=== PATIENT | male | born 1935 | race Caucasian/White ===

== ENCOUNTER 2017-01-19 05:57 | Day surgery (SDC) | payer MEDICARE, OTHER ==
[~2017-01-19] VITALS: Ht 172.7 cm; Wt 94.1 kg
--- NOTE | ~2017-01-19 | EEP ---
ICD Generator Change/Upgrade Report Demographics Patient Name PUMA PINK Gender Male Patient Number [id number] Race Visit Number [id number] Ethnicity Corporate ID Room Number Accession Number [id number] Height 172.72 cm Date of 1935 Weight 93.89 kg Age 81 year(s) BSA 2.07 m Referring Physician Kiah Bañuelos MD BMI 31.47 kg/m Implanting Physician King Chava Coyle MD Date of Study 01/19/2017 Assisting Physician Performing Physician The procedure was explained in detail to the patient. Risks, complications and alternative treatments were reviewed. Written consent was obtained. Medications reviewed with patient prior to procedure. Conclusions Implantable Device Summary Summary Successful Single Chamber ICD exchange. Recommendations A wound check should be performed in 7 days. Complications No complications. Procedure Procedure Type ICD:Generator Exchange (No new leads), Exchange of ICD Gen w/1 lead Indications Generator DESMOND. Procedure Description The patient was brought to the cardiac cath laboratory in a fasting state. The patient was brought to the electrophysiology laboratory in a fasting state. A baseline ECG was recorded. Surface ECG leads, intracardiac electrograms, blood pressure measurements, and pulse oximety signals were monitored. A grounding pad was placed on the left thigh. A defibrillator was configured to deliver shocks via self-adhesive lateral defibrillator pads. Conscious sedation was administered. The left upper chest area was prepped with ChloraPrep. After a three minute dry time the patient was draped in a sterile fashion. 1 % Lidocaine with bupivacaine was used in the infraclavicular area and the incision was made over the old scar. Blunt dissection was performed down to the area of the capsule surrounding the ICD. The capsule was incised sharply and dissected free. The device was then removed. The leads were unscrewed. The leads were then tested. The leads were then connected to the new ICD generator. The pocket was flushed with antibiotic solution and hemostasis was obtained. The incision was then closed. It was closed using 2-0 Vicryl for the deep and intermediate layer and 4-0 Vicryl for the subcuticular layer. A sterile dressing was applied. The patient tolerated the procedure well and was returned to short stay surgery in stable condition. Devices and Leads Devices + + +--------+ +------+ + + !Identification!Action !Location!Device !Serial!Implant !Comments ! ! ! ! !name !# !date ! ! + + +--------+ +------+ + + !New implant !Implanted !Left !ICD !535776!01/19/2017! ! ! ! !Pectoral!DYNAGEN EL! ! ! ! ! ! ! !VR D151 ! ! ! ! ! ! ! !(623045) ! ! ! ! + + +--------+ +------+ + + Device Programming Bradycardia Zone +-------+--------+--------+--------+ + +------+--------+ !Pacing !Mode !Lower !Upper !Paced AV !Sensed AV !PVARP !VRP (ms)! !Mode !Switch !Rate !Rate !Interval !Interval !(ms) ! ! ! ! !(ppm) !(ppm) !(ms) !(ms) ! ! ! +-------+--------+--------+--------+ + +------+--------+ !VVI ! !50 !120 ! ! ! !250 ! +-------+--------+--------+--------+ + +------+--------+ Medical History Allergies - No known allergies:. Admission Data Admission Date: 01/19/2017 Admission Time: 05:57 Insurance Payors:Medicare. Hospital Status:Outpatient. Procedure Data Procedure Date:01/19/2017Start:08:30End:09:08 Estimated blood loss:10 ml. Procedure Medications Order and Administration + + +---------+--------+ !Time !Medication !Dosage !Route ! + + +---------+--------+ !01/19/2017 08:11 !Ancef !2 g !I.V. ! + + +---------+--------+ !01/19/2017 08:11 !Sodium Chloride !10 ml !I.V. ! + + +---------+--------+ !01/19/2017 08:21 !Versed !2 mg !I.V. ! + + +---------+--------+ !01/19/2017 08:21 !Fentanyl !50 mcg !I.V. ! + + +---------+--------+ !01/19/2017 08:22 !Sodium Chloride !30 ml !I.V. ! + + +---------+--------+ !01/19/2017 08:32 !Oxygen !2 l/min !NC ! + + +---------+--------+ !01/19/2017 08:37 !Fentanyl !50 mcg !I.V. ! + + +---------+--------+ !01/19/2017 08:38 !Versed !1 mg !I.V. ! + + +---------+--------+ Approach - Incision site: Left existing scar.The incision was closed using 3-0 Vicryl for the deep and intermediate layers and 4-0 Vicryl for the subcuticular layer. A sterile dressing was applied. Signatures
== END 2017-01-19 11:52 | disposition home or self-care (01) ==
LOC: SSS 05:57
DX: Z45.02 Encounter for adjustment and management of automatic implantable cardiac defibrillator (principal); I25.10 Atherosclerotic heart disease of native coronary artery without angina pectoris; I11.0 Hypertensive heart disease with heart failure; I50.32 Chronic diastolic (congestive) heart failure; Z87.891 Personal history of nicotine dependence; Z98.890 Other specified postprocedural states